=== PATIENT | female | born 1995 | race Caucasian/White ===

== ENCOUNTER → 2023-09-18 13:28 | Outpatient (REF) | payer BC, SELFPAY | LOC: PNTC 13:28 | PROVIDERS: ATTENDING PHYSICIAN Obstetrics & Gynecology | DX: Z34.82 Encounter for supervision of other normal pregnancy, second trimester (principal) | CPT/HCPCS: 76805 ==

== ENCOUNTER → 2023-10-30 15:42 | Outpatient (REF) | payer BC, SELFPAY | LOC: PNTC 15:42 | PROVIDERS: ATTENDING PHYSICIAN Obstetrics & Gynecology | DX: O98.519 Other viral diseases complicating pregnancy, unspecified trimester (principal); U07.1 COVID-19 | CPT/HCPCS: 76816 ==

== ENCOUNTER → 2023-11-08 13:56 | Outpatient (REF) | payer BC, SELFPAY ==
--- NOTE | 2023-11-08 07:52 | PN.DIAED06 ---
Meal Plan - Gestational
- Breakfast
Gestational Diabetes Meal Plan Name: 1800 calories
Breakfast - Total Carbohydrate (grams): 30
Breakfast - Starch Carbohydrate: 1
Breakfast - Fruit Carbohydrate: 0
Breakfast - Milk Carbohydrate: 1
Breakfast - Nonstarchy Vegetables: Yes
Breakfast - Meat/Protein: 1
Breakfast - Fat: 2
- Morning Snack
Morning Snack - Total Carbohydrate (grams): 30
Morning Snack - Starch Carbohydrate: 1
Morning Snack - Fruit Carbohydrate: 0
Morning Snack - Milk Carbohydrate: 1
Morning Snack - Nonstarchy Vegetables: Yes
Morning Snack - Meat/Protein: 0.5
Morning Snack - Fat: 0
- Lunch
Lunch - Total Carbohydrate (grams): 45
Lunch - Starch Carbohydrate: 2
Lunch - Fruit Carbohydrate: 1
Lunch - Milk Carbohydrate: 0
Lunch - Nonstarchy Vegetables: Yes
Lunch - Meat/Protein: 2
Lunch - Fat: 1
- Afternoon Snack
Afternoon Snack - Total Carbohydrate (grams): 30
Afternoon Snack - Starch Carbohydrate: 1
Afternoon Snack - Fruit Carbohydrate: 1
Afternoon Snack - Milk Carbohydrate: 0
Afternoon Snack - Nonstarchy Vegetables: Yes
Afternoon Snack - Meat/Protein: 1
Afternoon Snack - Fat: 0
- Dinner
Dinner - Total Carbohydrate (grams): 45
Dinner - Starch Carbohydrate: 2
Dinner - Fruit Carbohydrate: 0
Dinner - Milk Carbohydrate: 1
Dinner - Nonstarchy Vegetables: Yes
Dinner - Meat/Protein: 2
Dinner - Fat: 2
- Evening Snack
Evening Snack - Total Carbohydrate (grams): 30
Evening Snack - Starch Carbohydrate: 1
Evening Snack - Fruit Carbohydrate: 0
Evening Snack - Milk Carbohydrate: 1
Evening Snack - Nonstarchy Vegetables: Yes
Evening Snack - Meat/Protein: 1
Evening Snack - Fat: 1
--- NOTE | 2023-11-08 15:21 | PN.DIAED02 ---
Referral
DSME Class Series Code: GDM
Referred For: Gestational Diabetes Self-Management Training, Management of Diabetes During , Medical Nutrition Therapy, Self-Blood Glucose Monitoring
PHI Release Authorization Form Signed: Yes
Patient Problems:
Current Active Problems
Problem Status Onset
Gestational diabetes mellitus in , unspecified control
Demographic
(1) Gestational diabetes mellitus in , unspecified control
Status: Acute
Qualifiers:
Gestational diabetes mellitus control: diet-controlled
Code(s): O24.419 - Gestational diabetes mellitus in , unspecified control
Care Plan
- Education Needs
Patient Education Needs: Monitoring, Nutritional management, Preconception care//gestational diabetes management
Recommended Diabetes Training Program based on assessment: Gestational Diabetes Management
- Plan of Care
Plan of Care:
Met with Ms. Dow today, , currently at 28 weeks of gestation, here today for medical nutrition therapy.
Explained glucose metabolism in body and what occurs during to cause increase blood sugar. Discussed importance of keeping BS well controlled to avoid complications to the baby during and after (macrosomia, hypoglycemia).
Explained to Eda that she is at increased risk of developing T2DM in the future. Eda reports that she has a glucose monitor at home ([employer]) that she has been using to monitor her blood sugars, fasting and 2 hrs after each meal since dx
of GDM. Reviewed proper testing technique, testing sites and testing pattern. She is aware to test FBS and 2 hr pp each meal. Expected results for FBS <95 mg/dl and 2 hr pp <120 mg/dl. Noted for blood sugar of 70 2 hrs after lunch. Log sheet
provided for her to record results, she will send a 4 day meal log with all her FBG and 2hr Post prandial glucose numbers to this office for review. In addition, she will send all her glucose readings to Jodi at [facility] every
Monday.
Discussed macronutrients, provided with 1800 aruna GDM meal plan, she has a good understanding of healthy nutrition and has been eating healthy since finding out that she has GDM with this as well.
She was encouraged to increase her activity and to stay active during her and will reach out should she require insulin.
A script for test strips was sent to her [facility] pharmacy in [place] as requested.
== END ==
LOC: DES 13:56
PROVIDERS: ATTENDING PHYSICIAN Obstetrics & Gynecology
DX: O24.419 Gestational diabetes mellitus in pregnancy, unspecified control (principal)
CPT/HCPCS: 99078

== ENCOUNTER → 2024-01-02 15:01 | Outpatient (REF) | payer BC, SELFPAY | LOC: PNTC 15:01 | PROVIDERS: ATTENDING PHYSICIAN Obstetrics & Gynecology | DX: O24.419 Gestational diabetes mellitus in pregnancy, unspecified control (principal); O34.219 Maternal care for unspecified type scar from previous cesarean delivery; Z34.80 Encounter for supervision of other normal pregnancy, unspecified trimester; O98.519 Other viral diseases complicating pregnancy, unspecified trimester | CPT/HCPCS: 76816 ==

== ENCOUNTER 2024-02-03 00:45 | Inpatient (IN) | payer BC, SELFPAY ==
[2024-02-03 00:52] VITALS: BMI 28.4
[2024-02-03 01:08] VITALS: BP 137/85
[2024-02-03 01:36] LABS: Glucose - Point of Care 92 mg/dl (70-99)
[2024-02-03] MEDS: LR 1000 IV ×2 (01:40→06:20)
[2024-02-03 02:00] LABS: % Basophils 0.6 % (0-2); % Eosinophils 0.6 % (0-6); % Immature Granulocytes 0.5 % (0-0.5); % Monocytes 6.5 % (1.7-9.3); % Neutrophils 68.8 % (42.2-75.2); Absolute Basophils 0.1 10^3/uL (0-0.2); Absolute Eosinophils 0.1 10^3/uL (0-0.7); Absolute Immature Granulocytes 0.1 10^3/uL (0-0.05); Absolute Lymphocytes 2.3 10^3/uL (1.2-3.4); Absolute Monocytes 0.7 10^3/uL (0.1-0.6); Hematocrit 34.8 % (37.0-47.0); Hemoglobin 12.6 g/dL (12.0-16.0); Mean Corp Hgb Conc. 36.2 g/dL (33.0-37.0); Mean Corpuscular Hgb 30.4 pg (27.0-31.0); Mean Corpuscular Volume 83.9 fL (81.0-99.0); Mean Platelet Volume 10.1 fL (7.4-10.4); Nucleated Red Blood Cells % 0 %; Platelet Count 279 10^3/uL (130-400); Red Blood Cell Count 4.15 10^6/uL (4.20-5.40); Red Cell Dist. Width 12.9 % (11.5-14.5); White Blood Cell Count 10.2 10^3/uL (4.8-10.8)
[2024-02-03 05:28] LABS: Glucose - Point of Care 99 mg/dl (70-99)
[2024-02-03 08:27] LABS: Glucose - Point of Care 82 mg/dl (70-99)
[2024-02-03 10:06] LABS: Glucose - Point of Care 96 mg/dl (70-99)
[2024-02-03 12:16] LABS: Glucose - Point of Care 93 mg/dl (70-99)
[2024-02-03 14:23] LABS: Glucose - Point of Care 98 mg/dl (70-99)
[2024-02-03 16:27] LABS: Glucose - Point of Care 93 mg/dl (70-99)
[2024-02-03 18:07] LABS: Glucose - Point of Care 118 mg/dl (70-99)
[2024-02-03] MEDS: PITOCIN 30 UNITS/NSS 500 ML IV (18:38)
[2024-02-03] MEDS: XYLOCAINE-MPF 1% VIAL 30 ML INFIL (19:18)
[2024-02-03] MEDS: MOTRIN 600 MG PO (19:57)
[2024-02-04] MEDS: TYLENOL 650 MG PO ×3 (00:56→11:05)
[2024-02-04] MEDS: MOTRIN 600 MG PO ×3 (02:16→23:41)
[2024-02-04 05:24] LABS: Hematocrit 33.3 % (37.0-47.0); Hemoglobin 12.1 g/dL (12.0-16.0)
[2024-02-04] MEDS: PRENATAL PLUS 1 TABLET PO (08:11)
[2024-02-05] MEDS: MOTRIN 600 MG PO (06:05)
[2024-02-05] MEDS: PRENATAL PLUS 1 TABLET PO (08:59)
[2024-02-05] MEDS: SENOKOT-S 1 TABLET PO (08:59)
[2024-02-06 11:49] LABS: Syphilis/T. pallidum Ab Reflex Negative (Negative)
== END 2024-02-05 11:04 | disposition home or self-care (01) | DRG 807 ==
LOC: LDRP 00:45
PROVIDERS: Obstetrics & Gynecology; ADMITTING PHYSICIAN Obstetrics & Gynecology
PROC: 0HQ9XZZ Repair Perineum Skin, External Approach (ICD-10-PCS; 2024-02-03)
PROC: 10E0XZZ Delivery of Products of Conception, External Approach (ICD-10-PCS; 2024-02-03)
DX: O48.0 Post-term pregnancy (principal); Z37.0 Single live birth; Z3A.40 40 weeks gestation of pregnancy; O24.420 Gestational diabetes mellitus in childbirth, diet controlled; O66.0 Obstructed labor due to shoulder dystocia; O34.211 Maternal care for low transverse scar from previous cesarean delivery; N85.8 Other specified noninflammatory disorders of uterus; O70.0 First degree perineal laceration during delivery
CPT/HCPCS: 36415; 82962; 85014; 85018; 85025; 86780; 86850; 86900; 86901